=== PATIENT | female | born 1995 | race Hispanic/Latino ===

== ENCOUNTER 2023-03-12 08:23 | Emergency (ER) | payer MEDICAID ==
[2023-03-12 09:39] LABS: #Lymphocytes 1.4 thou/uL (1.20-3.40); #Monocytes 0.3 thou/uL (0.11-0.59); #Neutrophils 4.5 thou/uL (1.40-6.50); %Basophils 0.4 % (0.0-1.0); %Eosinophils 0.4 % (0.0-10.0); %Lymphocytes 21.6 % (21.0-51.0); %Neutrophils 72.5 % (42.0-75.0); Hemoglobin 12.1 g/dL (12.0-16.0); Mean Corpuscular HGB CONC 34.8 g/dL (32.0-36.0); Mean Corpuscular Hemoglobin 31.7 pg (27.0-31.0); Mean Platelet Volume 6.5 fL (7.4-10.4); Platelet Count 273 10x3/uL (130-400); RBC Distribution Width 10.9 % (11.5-14.5); Red Blood Cell (RBC) Count 3.83 mill/uL (4.20-5.40); White Blood Cell (WBC) Count 6.3 10x3/uL (4.8-10.8)
[2023-03-12 09:57] LABS: Pregnancy Test - Urine (BHCG) POSITIVE (Negative); Pregu Control Background? CLEAR/WHITE (CLR/WHITE); Pregu Control Bar Appear? YES (CONTROL BAR); Specific Gravity 1.024 (1.002-1.036)
[2023-03-12 10:00] LABS: ALT (SGPT) 19 U/L (8-55); AST (SGOT) 21 U/L (5-34); Albumin 4.3 g/dL (3.5-5.0); Alkaline Phosphatase 60 U/L (40-110); Anion Gap 11 mmol/L (10-20); BUN (Urea Nitrogen) 7 mg/dL (7.0-18.7); Bilirubin, Total 0.9 mg/dL (0.2-1.2); Calc. Creatinine Clearance 0 mL/min (70-130); Calcium 9.2 mg/dL (7.8-10.44); Carbon Dioxide 22 mmol/L (22-29); Chloride 109 mmol/L (98-107); Estimated GFR 128; Globulin 2.6 g/dL (2.4-3.5); Glucose 85 mg/dL (70-105); Magnesium 1.9 mg/dL (1.6-2.6); Potassium 3.9 mmol/L (3.5-5.1); Protein, Total 6.9 g/dL (6.0-8.3); Sodium 138 mmol/L (136-145)
[2023-03-12 10:01] LABS: CRP (Inflammatory) Less than 0.50 mg/dL (= or < 0.5); Lipase 28 U/L (8-78)
[2023-03-12 10:05] LABS: Amphetamine Not Detected (NotDetected); Barbiturates Screen Not Detected (NotDetected); Benzodiazepine Screen Not Detected (NotDetected); Cocaine Metabolite Screen Not Detected (NotDetected); Methadone Not Detected (NotDetected); Methamphetamine Not Detected (NotDetected); Opiate Screen Not Detected (NotDetected); Oxycodone Screen Not Detected (NotDetected); Phencyclidine (PCP) Not Detected (NotDetected); THC/Cannabinoid Screen Not Detected (NotDetected); Tricyclic Screen Not Detected (NotDetected)
[2023-03-12 10:31] LABS: Bilirubin Negative (Negative); Blood, Urine Large (Negative); Clarity Slightly Cloudy (Clear); Glucose, Urine (Dipstick) Negative (Negative); Ketone, Urine Negative (Negative); Leukocyte Negative (Negative); Nitrite Negative (Negative); Protein, Urine (Dipstick) 100 mg/dL (Neg-Trace); Specific Gravity, Urine 1.024 (1.002-1.036); pH, Urine 5.5 (5.0-9.0)
[2023-03-12 10:32] LABS: Bacteria/HPF Rare-Few HPF (None Seen); RBC/HPF 21-50 HPF (0-3); Squamous Epithelial 0-3 HPF (0-3); WBC/HPF 0-3 HPF (0-3)
== END 2023-03-12 11:07 | disposition short-term general hospital (02) ==
LOC: BURERS 08:23
DX: O20.8 Other hemorrhage in early pregnancy (principal); Z3A.12 12 weeks gestation of pregnancy
CPT/HCPCS: 36415; 80053; 80306; 81003; 81015; 81025; 83690; 83735; 84484; 84702; 85025; 86140; 86850; 86900; 86901; 99284